=== PATIENT | male | born 1950 | race African-American/Black ===

== ENCOUNTER 2016-07-10 05:59 | Inpatient (IN) | payer MEDICARE, BC ==
[~2016-07-10] VITALS: Ht 198.1 cm; Wt 108.9 kg
[2016-07-10] VITALS (12 sets, daily range): BP systolic 107–162; BP diastolic 55–83
[2016-07-10] MEDS ORDERED: celeBREX 200mg Cap **SURGERY PATIENTS ONLY ORAL ONE (06:00)
[2016-07-10] MEDS ORDERED: oxyCONTIN 20mg tab ORAL ONE (06:00)
[2016-07-10] MEDS ORDERED: Clindamycin 600mg 50 ML IV ONE (06:00)
--- NOTE | 2016-07-10 06:53 | Pre-Procedure Note/Attestation ---
Pre-Procedure Note/Attestation Complete Prior to Procedure Planned Procedure: left Procedure Narrative: left TKA Indications for Procedure Pre-Operative Diagnosis: Left knee arthritis Attestation I attest that I discussed the nature of the procedure; its benefits; risks and complications; and alternatives (and the risks and benefits of such alternatives ), prior to the procedure, with the patient (or the patient's legal tax compliance representative). I attest that, if there was a reasonable possibility of needing a blood transfusion, the patient (or the patient's legal tax compliance representative) was given the [facility] standardized written summary, pursuant to the [place] Blood Safety Act ([place] Health and Safety Code # 1645, as amended). I attest that I re-evaluated the patient just prior to the surgery and that there has been no change in the patient's H&P, except as documented below:NONE MING PENN Jul 10, 2016 06:53
[2016-07-10] MEDS ORDERED: SPIRONOLACTONE25 MG ORAL (07:41)
[2016-07-10] MEDS ORDERED: EDARBI40 MG ORAL (07:42)
[2016-07-10] MEDS ORDERED: VERAPAMIL SR240 MG PO (07:42)
[2016-07-10] MEDS ORDERED: WARFARIN SODIUM5 MG ORAL (07:43)
[2016-07-10] MEDS ORDERED: CARDURA4 MG ORAL (07:44)
[2016-07-10] MEDS ORDERED: PACERONE200 MG ORAL (07:44)
[2016-07-10] MEDS ORDERED: Morphine Sulfate PF 10 ML ONE (08:19)
[2016-07-10] MEDS ORDERED: Ropivacaine 5mg/ml Vial 20ml INJ ONE (08:19)
[2016-07-10] MEDS ORDERED: Bupivacaine 0.5% Inj 30 ml vial INJ ONE (08:19)
[2016-07-10] MEDS ORDERED: Bacitracin 50000 Units Vial ONE (08:40)
[2016-07-10 08:44] LABS: INR 1.8 (0.9-1.1); PROTHROMBIN TIME 18.8 SEC (9.30-11.50)
[2016-07-10] MEDS ORDERED: LR 1000ml ONE (08:45)
[2016-07-10] MEDS ORDERED: NS Irrig 2000ml IRRIG ONE (08:45)
[2016-07-10] MEDS ORDERED: Dexamethasone 4mg/ml vial ONE (08:45)
[2016-07-10] MEDS ORDERED: Propofol 10mg/ml 20ml IV ONE (08:45)
[2016-07-10] MEDS ORDERED: Lidocaine 1% MPF 10mg/ml 5ml ONE (08:45)
[2016-07-10] MEDS ORDERED: Alfentanil 2ml Inj ONE (08:45)
[2016-07-10] MEDS ORDERED: Sterile Water For Irrig 2000ml IRRIG ONE (08:45)
[2016-07-10] MEDS ORDERED: Sterile Water Irrig 1000ml IRRIG ONE (08:45)
[2016-07-10] MEDS ORDERED: NS Irrig 1000ml ONE (08:45)
[2016-07-10] MEDS ORDERED: Midazolam 2mg/2ml Inj ONE (08:45)
--- NOTE | 2016-07-10 09:32 | Anethesia Preoperative Eval ---
Anesthesia Pre-op PMH/ROS General Date of Evaluation: Jul 10, 2016 Time of Evaluation: 08:41 Anesthesiologist: Carter ASA Score: ASA 3 Mallampati Score Class I : Soft palate, uvula, fauces, pillars visible Class II: Soft palate, uvula, fauces visible Class III: Soft palate, base of uvula visible Class IV: Only hard plate visible Mallampati Classification: Class III Surgeon: Danilo Anesthesia History: none Family History: no anesthesia problems Allergies: Coded Allergies: PENICILLINS (Unverified Allergy, Unknown, unknown, 07/10/16) "was told by mother that he is allergic to penicillin" Uncoded Allergies: grass (Allergy, Mild, unknown, 07/10/16) "was tested and was told" Medications: see eMAR Past Medical History Cardiovascular: Reports: HTN, arrhythmia - paroxysmal AFib Gastrointestinal/Genitourinary: Reports: other - BPH Neurologic/Psychiatric: Reports: CVA Hematology/Immune: Reports: DVT - Vena Cava Filter PSxH Narrative: Multiple Sx T Bilateral Knees, L Shoulder, Crainotomy, Vena Cava Filter Anesthesia Pre-op Phys. Exam Physician Exam Last Vital Signs Date Time Temp Pulse Resp B/P Pulse Ox O2 Delivery O2 Flow Rate FiO2 07/10/16 08:40 98.7 54 18 141/75 99 Room Air Constitutional: NAD Neurologic: CN 2-12 intact Cardiovascular: RRR Respiratory: CTA Gastrointestinal: S/NT/ND Airway Exam Mallampati Score: Class III MO: full ROM: limited Teeth: intact Anesthesia Pre-op A/P Labs Coagulation Test 07/10/16 07:50 Prothrombin Time 18.8 SEC (9.30-11.50) H Prothromb Time International Ratio 1.8 (0.9-1.1) H Activated Partial Thromboplast Time 31 SEC (23-33) Risk Assessment & Plan Assessment: ASA 3 Plan: Ga, Spinal L Adductor Block Status Change Before Surgery: No Pre-Antibiotics Dru Mg Clindamycin IV Given Within 1 Hr of Incision: Yes Time Given: 08:51 Baldo Machado MD Jul 10, 2016 09:32
[2016-07-10] MEDS ORDERED: LR 1000ml 1,000 ML IVLG SCH (09:42)
[2016-07-10] MEDS ORDERED: Bupivacaine w/Epi 0.5% 30ml Vial INJ ONE (09:44)
[2016-07-10] MEDS ORDERED: Hydromorphone 0.5mg/0.5ml inj IVP PRN (09:45)
[2016-07-10] MEDS ORDERED: DiphenhydrAMINE 50mg/ml Inj IVP PRN (09:45)
[2016-07-10] MEDS ORDERED: Norco 5mg/325mg tab ORAL PRN ×2 (09:45→14:00)
[2016-07-10] MEDS ORDERED: Ketorolac 30mg Inj IV PRN (09:45)
[2016-07-10] MEDS ORDERED: Metoclopramide 10mg/2ml Inj IVP PRN (09:45)
[2016-07-10] MEDS ORDERED: Atropine Inj 1mg/10ml Syr IV PRN (09:45)
[2016-07-10] MEDS ORDERED: Labetalol 5mg/ml 20ml vial IV PRN (09:45)
[2016-07-10] MEDS ORDERED: LORazepam Inj 2mg/ml 1ml IV PRN (09:45)
[2016-07-10] MEDS ORDERED: Norco 7.5mg/325mg tab ORAL PRN ×2 (09:45→14:00)
[2016-07-10] MEDS ORDERED: fentaNYL 100 mcg/2 mL IV PRN (09:45)
[2016-07-10] MEDS ORDERED: Midazolam 2mg/2ml Inj IVP PRN (09:45)
[2016-07-10] MEDS ORDERED: Tranexamic Acid 1,000 MG in NS 55 ML IV ONE (09:45)
[2016-07-10] MEDS ORDERED: Ketorolac 60mg Inj IV PRN (09:45)
[2016-07-10] MEDS ORDERED: Oxycodone/Acetaminophen 5-325 ORAL PRN (09:45)
[2016-07-10] MEDS ORDERED: Meperidine 25mg/ml Inj IV PRN (09:45)
--- NOTE | 2016-07-10 09:58 | Immediate Post-Op Evaluation ---
Immediate Post-Op Evalulation Immediate Post-Op Evalulation Procedure: L Knee Total Arthroplasty Date of Evaluation: Jul 10, 2016 Time of Evaluation: 12:14 IV Fluids: 1000 LR Blood Products: 0 Estimated Blood Loss: 50 Urinary Output: 250 Blood Pressure Systolic: 111 Blood Pressure Diastolic: 56 Pulse Rate: 64 Respiratory Rate: 16 O2 Sat by Pulse Oximetry: 100 Temperature (Fahrenheit): 98.7 Pain Score (1-10): 0 Nausea: No Vomiting: No Complications 0 Patient Status: awake, reacts, patent, extubated, none Hydration Status: adequate Dru Mg Clindamycin IV Given Within 1 Hr of Incision: Yes Time Given: 08:51 Baldo Machado MD Jul 10, 2016 09:58
--- NOTE | 2016-07-10 11:53 | Brief Operative Note ---
Immediate Post Operative Note Operative Note Chief Complaint: left knee pain Pre-op Diagnosis: left knee arthritis Procedure: left TKA Post-op Diagnosis: same as pre-op Findings: consistent w/pre-op dx studies Surgeon: md Danilo Bat Person: vishal Lobo Anesthesiologist: MD Zenon Anesthesia: general Specimen: yes Complications: none Condition: stable Estimated Blood Loss: minimal Drains: none Implant(s) used?: Yes - DIPTI Murphy Jul 10, 2016 11:53
[2016-07-10] MEDS ORDERED: HYDROmorphone 1mg/ml Carpuject SUBQ PRN (14:00)
[2016-07-10] MEDS ORDERED: Milk of Magnesia 30ml Ud ORAL PRN (14:00)
--- NOTE | 2016-07-10 14:21 | Diagnostic Imaging Report ---
Indication: POST-OP Technique: 2 views of the left knee Comparison: None Findings:Patient is status post total knee arthroplasty. Good anatomic alignment of the prosthesis. Retained air in the surgical wound is noted. Impression:Postoperative left knee. No unusual features
--- NOTE | 2016-07-10 16:26 | General Progress Note ---
Assessment/Plan Status Narrative hypertension historyof afib historyof pulmonary embolism chronci anticoagulatin repeated PE historyof IVC filter Assessment/Plan high risk orf recurent pe depsite previous ivc filter placemtn plan check a venosu duplex dvt prophyalxis when ok to start coumadin pt ot paincontrol hyeprtenison bp meds with hold parametes on amiodaroine georgette carreon wcloslye follow cbc Subjective Date patient seen: Jul 10, 2016 Time patient seen: 16:24 Constitutional: Reports: no symptoms Cardiovascular: Reports: no symptoms Respiratory: Reports: no symptoms Gastrointestinal/Abdominal: Reports: no symptoms Neurologic/Psychiatric: Reports: no symptoms Allergies: Coded Allergies: PENICILLINS (Unverified Allergy, Unknown, unknown, 07/10/16) "was told by mother that he is allergic to penicillin" Uncoded Allergies: grass (Allergy, Mild, unknown, 07/10/16) "was tested and was told" Objective Last 24 Hour Vital Signs Date Time Temp Pulse Resp B/P Pulse Ox O2 Delivery O2 Flow Rate FiO2 07/10/16 15:19 97.4 54 18 128/66 98 Room Air 07/10/16 13:45 97.3 51 18 114/56 97 Nasal Cannula 2.0 07/10/16 13:25 98.0 62 21 110/62 100 Nasal Cannula 3.0 07/10/16 13:10 60 13 107/58 100 Nasal Cannula 3.0 07/10/16 12:55 58 14 109/56 100 Nasal Cannula 3.0 07/10/16 12:40 64 19 110/56 100 Nasal Cannula 3.0 07/10/16 12:25 64 17 117/55 100 Nasal Cannula 3.0 07/10/16 12:13 62 15 111/57 100 Simple Mask 6.0 07/10/16 12:08 64 23 107/56 100 Simple Mask 6.0 07/10/16 12:03 98.7 64 16 111/56 100 07/10/16 12:03 64 16 100 07/10/16 08:40 98.7 54 18 141/75 99 Room Air Laboratory Tests 07/10/16 07:50: Prothrombin Time 18.8H, Prothromb Time International Ratio 1.8H, Activated Partial Thromboplast Time 31 Height (Feet): 6 Height (Inches): 6.00 Weight (Pounds): 240 General Appearance: WD/WN Neck: normal alignment Cardiovascular: normal rate, no JVD Respiratory/Chest: lungs clear Abdomen: soft ANITRA QUISPE Jul 10, 2016 16:26
[2016-07-10] MEDS: Clindamycin 600mg 50 ML IV SCH ×2 (17:27→22:03)
[2016-07-10] MEDS: Warfarin Sodium 5mg ORAL SCH (17:27)
[2016-07-10] MEDS: D5 1/2NS w/KCl 20mEq 1,000 ML IV SCH (17:27)
[2016-07-10] MEDS: Docusate 100mg cap ORAL SCH (17:33)
[2016-07-10] MEDS ORDERED: Verapamil SR 240mg tab ORAL SCH (21:00)
[2016-07-10] MEDS: Spironolactone 25mg tab ORAL SCH (22:03)
[2016-07-10] MEDS: Amiodarone 200mg tab ORAL SCH (22:03)
[2016-07-10] MEDS: oxyCONTIN 20mg tab ORAL SCH (22:04)
[2016-07-10] MEDS: EDARBI 40 MG ORAL SCH (22:04)
[2016-07-10] MEDS: Enoxaparin 30mg Inj SUBQ SCH (22:10)
[2016-07-10] MEDS: Doxazosin 4mg tab ORAL SCH (22:19)
[2016-07-10] MEDS: Verapamil SR 240mg tab ORAL SCH (22:23)
[2016-07-11] VITALS (9 sets, daily range): BP systolic 111–148; BP diastolic 54–96
[2016-07-11] MEDS: Clindamycin 600mg 50 ML IV SCH ×2 (03:00→09:17)
[2016-07-11] MEDS: D5 1/2NS w/KCl 20mEq 1,000 ML IV SCH ×2 (04:49→18:01)
[2016-07-11 07:30] LABS: BASOPHILS % (AUTO) 0.2 % (0.0-2.0); LYMPHOCYTES % (AUTO) 6.3 % (20.0-45.0); MEAN CORPUSCULAR HEMOGLOBIN 30.7 PG (27.0-31.0); MEAN CORPUSCULAR HGB CONC 33.1 G/DL (32.0-36.0); MEAN CORPUSCULAR VOLUME 93 FL (80-99); MEAN PLATELET VOLUME 7.7 FL (6.5-10.1); MONOCYTES % (AUTO) 9.4 % (1.0-10.0); NEUTROPHILS % (AUTO) 84.1 % (45.0-75.0); PLATELET COUNT 173 K/UL (150-450); RED BLOOD COUNT 3.59 M/UL (4.70-6.10); WHITE BLOOD COUNT 11.1 K/UL (4.8-10.8)
--- NOTE | 2016-07-11 08:05 | Orthopedic Progress Note ---
Orthopedic - Progress Note Subjective Symptoms: improved Objective Vital Signs Laboratory Tests Test 07/11/16 06:45 White Blood Count 11.1 K/UL (4.8-10.8) H Red Blood Count 3.59 M/UL (4.70-6.10) L Hemoglobin 11.0 G/DL (14.2-18.0) L Hematocrit 33.2 % (42.0-52.0) L Mean Corpuscular Volume 93 FL (80-99) Mean Corpuscular Hemoglobin 30.7 PG (27.0-31.0) Mean Corpuscular Hemoglobin Concent 33.1 G/DL (32.0-36.0) Red Cell Distribution Width 13.0 % (11.6-14.8) Platelet Count 173 K/UL (150-450) Mean Platelet Volume 7.7 FL (6.5-10.1) Neutrophils (%) (Auto) 84.1 % (45.0-75.0) H Lymphocytes (%) (Auto) 6.3 % (20.0-45.0) L Monocytes (%) (Auto) 9.4 % (1.0-10.0) Eosinophils (%) (Auto) 0.0 % (0.0-3.0) Basophils (%) (Auto) 0.2 % (0.0-2.0) Prothrombin Time Pending Prothromb Time International Ratio Pending Last 24 Hour Vital Signs Date Time Temp Pulse Resp B/P Pulse Ox O2 Delivery O2 Flow Rate FiO2 07/11/16 04:00 97.2 51 18 142/74 99 Room Air 07/11/16 00:00 96.4 52 18 148/78 96 Room Air 07/10/16 22:23 50 148/77 07/10/16 20:00 97.3 53 18 162/83 99 Room Air 07/10/16 15:19 97.4 54 18 128/66 98 Room Air 07/10/16 13:45 97.3 51 18 114/56 97 Nasal Cannula 2.0 07/10/16 13:25 98.0 62 21 110/62 100 Nasal Cannula 3.0 07/10/16 13:10 60 13 107/58 100 Nasal Cannula 3.0 07/10/16 12:55 58 14 109/56 100 Nasal Cannula 3.0 07/10/16 12:40 64 19 110/56 100 Nasal Cannula 3.0 07/10/16 12:25 64 17 117/55 100 Nasal Cannula 3.0 07/10/16 12:13 62 15 111/57 100 Simple Mask 6.0 07/10/16 12:08 64 23 107/56 100 Simple Mask 6.0 07/10/16 12:03 98.7 64 16 111/56 100 07/10/16 12:03 64 16 100 07/10/16 08:40 98.7 54 18 141/75 99 Room Air I&O Intake and Output 07/10/16 07/11/16 19:00 07:00 Intake Total 2025 ml 1035 ml Output Total 350 ml 575 ml Balance 1675 ml 460 ml Intake Oral 500 ml 360 ml IV Total 1525 ml 675 ml Output Urine Total 300 ml 575 ml Estimated Blood Loss 50 ml # Voids 2 Wound: clean, dry, intact Drains: none Neuro Status: other - intact sensation. weakness on dorsiflexion- possibly due to spinal/blocks- will monitor Vascular Status: normal Additional Comments xray reviewed Assessment Post-op Diagnosis POD 1 Procedure Performed left TKA Plan Plan: PT, discharge plan - home with services and DME on Saturday DIPTI SAL Jul 11, 2016 08:05
[2016-07-11 08:06] LABS: INR 1.7 (0.9-1.1); PROTHROMBIN TIME 17.5 SEC (9.30-11.50)
[2016-07-11] MEDS ORDERED: Amiodarone 200mg tab ORAL SCH (09:00)
[2016-07-11] MEDS ORDERED: Spironolactone 25mg tab ORAL SCH (09:00)
[2016-07-11] MEDS ORDERED: Doxazosin 4mg tab ORAL SCH (09:00)
[2016-07-11] MEDS: celeBREX 200mg Cap **SURGERY PATIENTS ONLY ORAL SCH (09:22)
[2016-07-11] MEDS: Docusate 100mg cap ORAL SCH ×3 (09:22→18:00)
[2016-07-11] MEDS: oxyCONTIN 20mg tab ORAL SCH ×2 (09:22→20:50)
[2016-07-11] MEDS: Enoxaparin 30mg Inj SUBQ SCH ×2 (09:27→20:55)
--- NOTE | 2016-07-11 12:04 | 48 Hour Post Anesthesia Eval ---
Post Anesthesia Evaluation Procedure: L Knee Total Arthroplasty Date of Evaluation: Jul 11, 2016 Time of Evaluation: 07:10 Blood Pressure Systolic: 142 0: 74 Pulse Rate: 51 Respiratory Rate: 18 Temperature (Fahrenheit): 97.2 O2 Sat by Pulse Oximetry: 99 Airway: patent Nausea: No Vomiting: No Pain Intensity: 1 Hydration Status: adequate Cardiopulmonary Status: at baseline Mental Status/LOC: patient returned to baseline Post-Anesthesia Complications: 0 Follow-up care needed: N/A - further care as per primary team CARLOS LANZA M.D. Jul 11, 2016 12:04
--- NOTE | 2016-07-11 15:58 | Operative Note - Dictated ---
DATE OF OPERATION: 07/10/2016 PREOPERATIVE DIAGNOSIS: Left knee end-stage arthritis with flexion deformity. 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 PROCEDURE: Left total knee arthroplasty using a [employer] system, size 12 femur, size H tibial plate with a 42 mm patellar component and 10 mm thick poly insert. SURGEON: Conner Carrasco M.D. BIOLOGY INTERN: Soumya Lobo PA-C. ANESTHESIOLOGIST: Baldo Machado M.D. ANESTHESIA: Spinal anesthesia combined with femoral nerve block for postoperative pain management. EBL: Less than 150 mL. COMPLICATIONS: None. BRIEF HISTORY: The patient is a pleasant 65-year-old gentleman, who has had ongoing left knee pain. He failed all nonoperative treatment. He has severe arthritis. After full discussion of risks and benefits of surgery and complications associated with it including infection, bleeding, neurovascular complication, possibility of DVT and PE, especially in his case where he has a history of DVT and PE in the past, possibility of infection requiring resection arthroplasty, possible loss of motion, stiffness, pain despite surgery and after surgery, limping and other complications, he opted for surgical treatment as described above. OPERATIVE PROCEDURE: The patient was brought to the operating room table and was placed supine. All pressure points were well padded. Spinal anesthesia was induced and a femoral block was performed. Left leg was prepped and draped in usual sterile fashion. Limb was exsanguinated. The tourniquet was inflated to 275 mmHg. A standard anterior approach to the knee was undertaken and medial parapatellar arthrotomy was performed. There were extensive osteophytes, which were resected. The medial release was performed. The notch was completely overgrown with bone. Therefore, this was resected using a rongeur. ACL and PCL were resected and intramedullary access into the femur was obtained. Intramedullary guide was placed in and a distal femoral cut was performed at 5 degrees of valgus. An optional extra 2 mm cut was taken in order to correct for the extension gap. Once this was completed, the sizing was performed. Size 12, which was the largest size for the femur appeared to be the right size. Therefore, the femur was placed in about 3 degrees of external rotation using transepicondylar access and the anterior, posterior, and chamfer cuts were performed. The femoral component was then applied and it appeared to be fitting perfectly. The peg holes were drilled. The femur was lateralized before drilling the peg holes. This provided excellent coverage of the femur. At this point, care was given to the tibial side. The trial femur was removed. The posterior and mediolateral retractors were placed in. The menisci were removed. The anatomical alignment was re-created and 2 mm was taken off the most involved side, which was the medial side. The slope was re-created and the tibial cut was performed without any complication. Sizing was performed and size H was the largest size that could be used. This appeared to be covering the tibia relatively well although was slightly small. However, because this was the largest size we had, there was no option to go any larger on the size. At this point, the tibia was placed in about 3 degrees external rotation on the best bone and the pins were applied. Prior to applying tibia, flexion-extension gap was checked, it appeared to be perfect. At this point, the central drilling was performed and the stem was punched without any complication. At this point, the femoral component, tibial component, and a 10 mm poly was placed and the knee was placed through range of motion. There was excellent extension, full flexion, and excellent stability at 0 degrees, 30 degrees, 45 degrees, and 90 degrees of flexion. At this point, care was given to the patella. At this time, the knee was placed in full extension. The patella was everted. The towel clamps were used and the patella measured to be 29 mm. At this point, a freehand patellar cut was performed and 12 mm patella was removed. Approximately 17 mm patella was remaining. Sizing was performed and size 42 appeared to be the correct size for the patella. At this point, the patellar pegs were then drilled without any complication. At this point, the patellar trial was applied and there was excellent fit. At this point, trialing was performed with patellar component, femoral component, and tibial component with a 10 mm insert and there was excellent patellofemoral tracking and excellent range of motion and stability as described previously. At this point, all trial components were removed and the knee was thoroughly irrigated using copious amount of fluid. The posterior capsule was injected with 0.5% Marcaine with epinephrine. The cement was mixed. The femoral component, tibial component, and patellar components were cemented. All excess cement was removed. At this point, once the cement hardened, trialing was performed and 10 mm poly appeared to be the right size again. Therefore at this point, a 10 mm actual poly was then locked in without any complications. This provided excellent range of motion and excellent stability and excellent patellofemoral tracking as described previously. Wounds were thoroughly irrigated using copious amount of fluid. The tourniquet was deflated and all bleeders were stopped. The extensor mechanism was closed using #1 Vicryl suture, subcutaneous tissue was closed in 2-0 Vicryl suture, skin was closed in 3-0 Vicryl suture, and Dermabond was applied. Sterile dressing was applied. The patient was taken to recovery room in stable condition. Conner Carrasco M.D. DR: JOSEF JOB#: [id number] CC: HELENA
--- NOTE | 2016-07-11 16:49 | General Progress Note ---
Assessment/Plan Status Narrative THIS IS A COMPLICATED PATIENT WITH HISTORY OF DVT HAS AHD IVC FILTER PLACVED APPARENTLY HAS HAD A CLAMPED PLACED WELL HE IS TALL AND APPARENTLY THE IVC FILTER WAS NOT BIG ENOUGH HE HAS HAD PULMONARY EMBOLISM POST IVC FILTER PLACEMENT OA KNEE AFIB HYPERTENSION PERIOPERATIVE BLOOD LOSS Assessment/Plan ON LOVENOX 30 SUB Q BID WILL GET VASCULAR TO SEE HIM GET KUB TO ASSESS THE IVC FILTER WILL GET VASCULAR TO COMMENT CAN NOT ANTICOAGULATE NOW HE IS HIGH RISK BLEEDINGI N THE JOINT POST OP PT OT FOLLO WBP WILL MONITOR HAS IVC FILTER SHOULD BE ABLE TO DO PHYSICAL THERAPY Subjective Date patient seen: Jul 11, 2016 Time patient seen: 16:45 Constitutional: Reports: no symptoms HEENT: Reports: no symptoms Cardiovascular: Reports: no symptoms Respiratory: Reports: no symptoms Gastrointestinal/Abdominal: Reports: no symptoms Genitourinary: Reports: no symptoms Allergies: Coded Allergies: PENICILLINS (Unverified Allergy, Unknown, unknown, 07/10/16) "was told by mother that he is allergic to penicillin" Uncoded Allergies: grass (Allergy, Mild, unknown, 07/10/16) "was tested and was told" Objective Last 24 Hour Vital Signs Date Time Temp Pulse Resp B/P Pulse Ox O2 Delivery O2 Flow Rate FiO2 07/11/16 12:04 51 18 99 07/11/16 12:00 97.5 54 20 115/67 98 Room Air 07/11/16 09:25 62 18 119/67 99 2.0 07/11/16 09:20 62 18 116/70 99 2.0 07/11/16 09:15 57 18 111/54 99 2.0 07/11/16 08:41 97.5 57 20 134/63 99 Room Air 07/11/16 04:00 97.2 51 18 142/74 99 Room Air 07/11/16 00:00 96.4 52 18 148/78 96 Room Air 07/10/16 22:23 50 148/77 07/10/16 20:00 97.3 53 18 162/83 99 Room Air Intake and Output 07/10/16 07/11/16 19:00 07:00 Intake Total 2025 ml 1035 ml Output Total 350 ml 575 ml Balance 1675 ml 460 ml Intake Oral 500 ml 360 ml IV Total 1525 ml 675 ml Output Urine Total 300 ml 575 ml Estimated Blood Loss 50 ml # Voids 2 Laboratory Tests 07/11/16 06:45: White Blood Count 11.1H, Red Blood Count 3.59L, Hemoglobin 11.0L, Hematocrit 33.2L, Mean Corpuscular Volume 93, Mean Corpuscular Hemoglobin 30.7, Mean Corpuscular Hemoglobin Concent 33.1, Red Cell Distribution Width 13.0, Platelet Count 173, Mean Platelet Volume 7.7, Neutrophils (%) (Auto) 84.1H, Lymphocytes ( %) (Auto) 6.3L, Monocytes (%) (Auto) 9.4, Eosinophils (%) (Auto) 0.0, Basophils (%) (Auto) 0.2, Prothrombin Time 17.5H, Prothromb Time International Ratio 1.7H Height (Feet): 6 Height (Inches): 6.00 Weight (Pounds): 240 General Appearance: WD/WN EENT: PERRL/EOMI Neck: supple Cardiovascular: normal rate, regular rhythm, no JVD Respiratory/Chest: lungs clear Abdomen: soft Extremities: other - right knee is weel cover ed with the dressing no drainge. ANITRA QUISPE Jul 11, 2016 16:49
[2016-07-11] MEDS: Warfarin Sodium 5mg ORAL SCH (17:11)
[2016-07-11 18:58] LABS: ALBUMIN/GLOBULIN RATIO 1.9 (1.0-2.7); CALCIUM 8.3 mg/dL (8.6-10.2); CREATININE 1.5 mg/dL (0.7-1.2); GLOMERULAR FILTRATION RATE 56.6 mL/min (>60); POTASSIUM 4.8 mEQ/L (3.4-4.9); TOTAL PROTEIN 5.3 g/dL (6.6-8.7)
[2016-07-11] MEDS: Verapamil SR 240mg tab ORAL SCH (20:48)
[2016-07-11] MEDS: Doxazosin 4mg tab ORAL SCH (20:49)
[2016-07-11] MEDS: Amiodarone 200mg tab ORAL SCH (20:49)
[2016-07-11] MEDS: EDARBI 40 MG ORAL SCH (20:49)
[2016-07-11] MEDS: Spironolactone 25mg tab ORAL SCH (20:49)
--- NOTE | 2016-07-11 21:53 | General Progress Note ---
Progress Note Progress Note Dictated consult to follow S/p left knee ortho procedure Hx of prior DVTs PE CVA and arrhythmia Left leg DVTs noted on duplex today No complaints No sob No chest pain No leg pain Hx of IVC banding and IVC filter ([place]) by IR 2013 at [facility] 2+ femorals with palpable pedal pulses Feet warm well perfused Mild left leg venous stasis changes with no ulcers No sig leg edema KUB: + IVC filter good position Rec CT angio chest abd pelvis Anticoagulate for life- therapeutic level Hematology eval r/o clotting disorder Ambulate Bilateral thigh high stockings to reduce leg venous edema Ok for d/c planning per vascular point d/w pt at length d/w RN at bedside MARILYN AUSTIN Jul 11, 2016 21:53
[2016-07-12] VITALS: BP 104/53
[2016-07-12 04:00] VITALS: BP 133/60
[2016-07-12 07:00] LABS: INR 2.3 (0.9-1.1); PROTHROMBIN TIME 24.3 SEC (9.30-11.50)
--- NOTE | 2016-07-12 07:12 | Orthopedic Progress Note ---
Orthopedic - Progress Note Subjective Symptoms: c/o post-op knee pain Additional Comments doing ok, no shortness of breath, no calf pain. Patient has a DVT but not symptomatic, most likely present preop Objective Vital Signs Last 24 Hour Vital Signs Date Time Temp Pulse Resp B/P Pulse Ox O2 Delivery O2 Flow Rate FiO2 07/12/16 04:00 98.1 56 21 133/60 96 Room Air 07/12/16 00:00 97.7 52 19 104/53 96 Room Air 07/11/16 20:48 58 133/96 07/11/16 20:00 98.6 58 18 133/96 100 Room Air 07/11/16 16:00 97.9 55 17 131/65 98 Room Air 07/11/16 12:04 51 18 99 07/11/16 12:00 97.5 54 20 115/67 98 Room Air 07/11/16 09:25 62 18 119/67 99 2.0 07/11/16 09:20 62 18 116/70 99 2.0 07/11/16 09:15 57 18 111/54 99 2.0 07/11/16 08:41 97.5 57 20 134/63 99 Room Air I&O Intake and Output 07/11/16 07/12/16 19:00 07:00 Intake Total 1665 ml 800 ml Output Total 1500 ml Balance 165 ml 800 ml Intake Oral 840 ml 500 ml IV Total 825 ml 300 ml Output Urine Total 1500 ml Wound: clean, dry Drains: none Neuro Status: normal Vascular Status: normal Assessment Post-op Diagnosis Left TKA Plan Plan: PT, pain management, discharge plan, discharge to home Additional Comments Dressing changes Continue PT Anticoagulation in progress with Coumadin 5mg and on Lovenox Continue monitoring progress MING PENN Jul 12, 2016 07:12
[2016-07-12 07:17] LABS: BASOPHILS % (AUTO) 0.3 % (0.0-2.0); EOSINOPHILS % (AUTO) 0.6 % (0.0-3.0); LYMPHOCYTES % (AUTO) 12.9 % (20.0-45.0); MEAN CORPUSCULAR HEMOGLOBIN 30.5 PG (27.0-31.0); MEAN CORPUSCULAR HGB CONC 33.4 G/DL (32.0-36.0); MEAN CORPUSCULAR VOLUME 91 FL (80-99); MEAN PLATELET VOLUME 8.8 FL (6.5-10.1); MONOCYTES % (AUTO) 15.4 % (1.0-10.0); NEUTROPHILS % (AUTO) 70.8 % (45.0-75.0); PLATELET COUNT 154 K/UL (150-450); RED BLOOD COUNT 2.95 M/UL (4.70-6.10); RED CELL DISTRIBUTION WIDTH 13.2 % (11.6-14.8)
[2016-07-12 08:00] VITALS: BP 143/73
[2016-07-12] MEDS: Docusate 100mg cap ORAL SCH ×3 (08:51→18:00)
[2016-07-12] MEDS: celeBREX 200mg Cap **SURGERY PATIENTS ONLY ORAL SCH (08:52)
[2016-07-12] MEDS: oxyCONTIN 20mg tab ORAL SCH ×2 (08:52→21:19)
[2016-07-12] MEDS: D5 1/2NS w/KCl 20mEq 1,000 ML IV SCH ×2 (08:53→21:17)
[2016-07-12] MEDS: Enoxaparin 30mg Inj SUBQ SCH ×2 (08:54→21:21)
--- NOTE | 2016-07-12 10:06 | Diagnostic Imaging Report ---
Clinical Indication:Chest pain, shortness of breath, abnormal labs Technique: IV administration nonionic contrast. Multiphasic spiral acquisition obtained through the chest, abdomen and pelvis. Multiplanar and 3-D reconstructions were generated. Total dose length product 2345 mGycm. CTDIvol(s) 12, 138, 32, 22 mGy Comparison: None Findings: Chest: Pulmonary arterial opacification is clearly adequate. No intraluminal filling defects or other findings to suggest acute pulmonary embolus demonstrated. No evidence of thoracic aortic aneurysm or dissection. The main pulmonary artery is dilated, measures 4 cm in diameter and is larger than the ascending thoracic aorta, suggestive of pulmonary arterial hypertension. Normal heart size. No evidence of right ventricular dilatation. The lungs posterior dependent atelectasis. There are scattered areas of mild interstitial septal thickening and scarring. No infiltrates effusions, congestion, or masses. There is a 2 mm nodule in the right middle lobe image 64 of series 9. No pericardial effusion. No mediastinal or hilar mass or adenopathy. The esophagus is unremarkable. The included thyroid is unremarkable. No axillary or chest wall mass or adenopathy. There is a superior endplate compression fracture deformity of the 11 vertebral body. Abdomen pelvis: There is a lap band in place. Position and configuration are as expected. There is an inferior vena cava filter in place. The inferior vena cava appears patent, but appears to be well-positioned, and no significant thrombus within the filter is demonstrated. Surgical clips are seen adjacent to the inferior vena cava, and there is an unusual U-shaped structure oriented transversely within the inferior vena cava caudad to the filter. There is equivocal colonic diverticulosis. No evidence of diverticulitis. The appendix is normal. No small bowel distention. No free or loculated intraperitoneal air or fluid is evident. The stomach is mildly distended with food. The duodenum is unremarkable. There is a large mass within the right adrenal. This demonstrates nonspecific, mostly low, soft tissue attenuation, measures 3.8 x 4 x 3.9 cm. The left adrenal is unremarkable. The liver, gallbladder, bile ducts, pancreas, spleen are unremarkable. The kidneys demonstrate bilateral cysts, as well as bilateral subcentimeter low-attenuation lesions which are too small to characterize most likely represent benign simple cortical cysts. In the periphery of the left lower pole, there is what appears to be a collapsed cyst, with some perinephric fluid adjacent to it. No pelvic mass or adenopathy. No retroperitoneal or mesenteric mass or adenopathy. There are degenerative changes of the lumbosacral spine and minimal scoliotic deformity. There are fairly extensive degenerative changes of the right hip. Impression: 3.8 x 4 x 3.9 cm right adrenal mass. Appearance nonspecific, but size in heterogeneous attenuation raise concern for malignancy. Tissue sampling should be considered Negative for evidence of acute pulmonary embolus or thoracic aortic aneurysm or dissection Dilated main pulmonary artery, suggestive of pulmonary arterial hypertension. Consider further evaluation with adrenal protocol MRI or CT, versus tissue sampling. 2 mm nodule within the right middle lobe. Recommend short interval six-month followup if there are significant risk factors for lung carcinoma, no further followup necessary there are no significant risk factors Bilateral renal cysts. Bilateral subcentimeter low-attenuation renal lesions small to characterize, most likely benign simple cortical cysts. No further followup necessary T11 superior endplate compression fracture deformity, age indeterminate. Consider MRI for further evaluation if this is considered clinically relevant Evidence of prior lap band surgery Inferior vena cava filter in good position. No evidence of caval thrombosi -- s. Unusual foreign body within the inferior vena cava. Uncertain as to whether this is resultant prior surgery or represents an embolized foreign body. Correlate with clinical history and surgical history. Other findings as noted, including degenerative spondylosis, degenerative changes of the right hip This agrees with the preliminary interpretation provided overnight by Dr. Perez The CT scanner at [facility] is accredited by the [employer] and the scans are performed using protocols designed to limit radiation exposure to as low as reasonably achievable to attain images of sufficient resolution adequate for diagnostic evaluation.
--- NOTE | 2016-07-12 11:00 | Diagnostic Imaging Report ---
Indication: PAIN, assess for presence of an inferior vena cava filter Technique: Supine view of the abdomen Comparison: none Findings: Bowel gas pattern is unremarkable. There is an inferior vena cava filter in the expected position. Surgical clips are seen caudad to the inferior vena cava filter. A lap band is in place. Impression: Positive for presence of an inferior vena cava filter No acute process
[2016-07-12 11:17] VITALS: BP 103/53
[2016-07-12 16:01] VITALS: BP 135/65
--- NOTE | 2016-07-12 19:07 | General Progress Note ---
Assessment/Plan Status Narrative s/p ct angio no pr has adrenl amass no ivc clot s/p tkr perioperative bloo dloss Assessment/Plan ionr is 2.3 hold coumadin will dc on lovenox and resume coumadin on lower dosage need to find out his medicaiotn regimen prior to admit also need to r/o malignancy on him as has adrenal mass. Subjective Date patient seen: Jul 12, 2016 Time patient seen: 19:05 Constitutional: Reports: no symptoms HEENT: Reports: no symptoms Cardiovascular: Reports: no symptoms Respiratory: Reports: no symptoms Allergies: Coded Allergies: PENICILLINS (Unverified Allergy, Unknown, unknown, 07/10/16) "was told by mother that he is allergic to penicillin" Uncoded Allergies: grass (Allergy, Mild, unknown, 07/10/16) "was tested and was told" Objective Last 24 Hour Vital Signs Date Time Temp Pulse Resp B/P Pulse Ox O2 Delivery O2 Flow Rate FiO2 07/12/16 16:01 98.2 59 18 135/65 97 Room Air 07/12/16 11:17 98.2 57 18 103/53 98 Room Air 07/12/16 08:00 97.7 63 20 143/73 98 Room Air 07/12/16 04:00 98.1 56 21 133/60 96 Room Air 07/12/16 00:00 97.7 52 19 104/53 96 Room Air 07/11/16 20:48 58 133/96 07/11/16 20:00 98.6 58 18 133/96 100 Room Air Intake and Output 07/11/16 07/12/16 19:00 07:00 Intake Total 1665 ml 875 ml Output Total 1500 ml Balance 165 ml 875 ml Intake Oral 840 ml 500 ml IV Total 825 ml 375 ml Output Urine Total 1500 ml Laboratory Tests 07/12/16 05:50: White Blood Count 8.0, Red Blood Count 2.95L, Hemoglobin 9.0L, Hematocrit 27.0L , Mean Corpuscular Volume 91, Mean Corpuscular Hemoglobin 30.5, Mean Corpuscular Hemoglobin Concent 33.4, Red Cell Distribution Width 13.2, Platelet Count 154, Mean Platelet Volume 8.8, Neutrophils (%) (Auto) 70.8, Lymphocytes (% ) (Auto) 12.9L, Monocytes (%) (Auto) 15.4H, Eosinophils (%) (Auto) 0.6, Basophils (%) (Auto) 0.3, Prothrombin Time 24.3H, Prothromb Time International Ratio 2.3H Height (Feet): 6 Height (Inches): 6.00 Weight (Pounds): 240 General Appearance: WD/WN Neck: non-tender Cardiovascular: normal rate, no JVD Respiratory/Chest: lungs clear Abdomen: soft ANITRA QUISPE Jul 12, 2016 19:07
[2016-07-12 20:35] VITALS: BP 132/57
[2016-07-12] MEDS: Verapamil SR 240mg tab ORAL SCH (21:00)
[2016-07-12] MEDS: Spironolactone 25mg tab ORAL SCH (21:18)
[2016-07-12] MEDS: Amiodarone 200mg tab ORAL SCH (21:19)
[2016-07-12] MEDS: Doxazosin 4mg tab ORAL SCH (21:19)
[2016-07-12] MEDS: EDARBI 40 MG ORAL SCH (21:22)
[2016-07-13] VITALS: BP 119/59
[2016-07-13 04:00] VITALS: BP 125/61
[2016-07-13 07:09] LABS: MEAN CORPUSCULAR HEMOGLOBIN 30.4 PG (27.0-31.0); MEAN CORPUSCULAR HGB CONC 33.2 G/DL (32.0-36.0); MEAN CORPUSCULAR VOLUME 92 FL (80-99); MEAN PLATELET VOLUME 7.1 FL (6.5-10.1); PLATELET COUNT 138 K/UL (150-450); RED CELL DISTRIBUTION WIDTH 12.7 % (11.6-14.8); WHITE BLOOD COUNT 5.7 K/UL (4.8-10.8)
[2016-07-13 07:11] LABS: INR 1.9 (0.9-1.1); PROTHROMBIN TIME 20.1 SEC (9.30-11.50)
[2016-07-13] MEDS ORDERED: DiphenhydrAMINE 50mg/ml Inj IVP PRN (08:00)
--- NOTE | 2016-07-13 08:01 | Orthopedic Progress Note ---
Orthopedic - Progress Note Subjective Symptoms: improved - walked well with PT yesterday Additional Comments taken off coumadin- now INR 1.9 hgb 7.9 Objective Vital Signs Laboratory Tests Test 07/13/16 06:25 White Blood Count 5.7 K/UL (4.8-10.8) Red Blood Count 2.60 M/UL (4.70-6.10) L Hemoglobin 7.9 G/DL (14.2-18.0) L Hematocrit 23.8 % (42.0-52.0) L Mean Corpuscular Volume 92 FL (80-99) Mean Corpuscular Hemoglobin 30.4 PG (27.0-31.0) Mean Corpuscular Hemoglobin Concent 33.2 G/DL (32.0-36.0) Red Cell Distribution Width 12.7 % (11.6-14.8) Platelet Count 138 K/UL (150-450) L Mean Platelet Volume 7.1 FL (6.5-10.1) Neutrophils (%) (Auto) % (45.0-75.0) Lymphocytes (%) (Auto) % (20.0-45.0) Monocytes (%) (Auto) % (1.0-10.0) Eosinophils (%) (Auto) % (0.0-3.0) Basophils (%) (Auto) % (0.0-2.0) Neutrophils % (Manual) Pending Lymphocytes % (Manual) Pending Platelet Estimate Pending Platelet Morphology Pending Prothrombin Time 20.1 SEC (9.30-11.50) H Prothromb Time International Ratio 1.9 (0.9-1.1) H Last 24 Hour Vital Signs Date Time Temp Pulse Resp B/P Pulse Ox O2 Delivery O2 Flow Rate FiO2 07/13/16 04:00 98.6 56 18 125/61 99 Room Air 07/13/16 00:00 98.1 66 18 119/59 98 Room Air 07/12/16 21:00 57 132/57 07/12/16 20:35 98.6 57 19 132/57 95 Room Air 07/12/16 16:01 98.2 59 18 135/65 97 Room Air 07/12/16 11:17 98.2 57 18 103/53 98 Room Air 07/12/16 08:00 97.7 63 20 143/73 98 Room Air I&O Intake and Output 07/12/16 07/13/16 19:00 07:00 Intake Total 1200 ml 860 ml Output Total 600 ml 2000 ml Balance 600 ml -1140 ml Intake Oral 600 ml 860 ml IV Total 600 ml Output Urine Total 600 ml 2000 ml Wound: clean, dry, intact Drains: none Neuro Status: normal Vascular Status: normal Assessment Post-op Diagnosis POD 3 Procedure Performed left TKA Plan Plan: PT, discharge to home - if ok with Dr. Mercado, ok to d/c home with services/DME after blood tx. Defer anticoag choice on d/c to Dr. Mercado, other - will order 2units PRBCs for low hgb. DIPTI SAL Jul 13, 2016 08:01
[2016-07-13 08:28] VITALS: BP 123/58
[2016-07-13 08:29] LABS: BAND NEUTROPHILS % (MANUAL) 2 % (0-8); BASOPHILS % (MANUAL) 0 % (0-2); EOSINOPHILS % (MANUAL) 2 % (0-3); LYMPHOCYTES % (MANUAL) 14 % (20-45); NEUTROPHILS % (MANUAL) 76 % (45-75); PLATELET ESTIMATE ADEQUATE; TOTAL CELLS COUNTED 100
[2016-07-13 08:30] LABS: PLATELET MORPHOLOGY NORMAL
[2016-07-13] MEDS: oxyCONTIN 20mg tab ORAL SCH ×2 (08:40→21:18)
[2016-07-13] MEDS: celeBREX 200mg Cap **SURGERY PATIENTS ONLY ORAL SCH (08:41)
[2016-07-13] MEDS: Enoxaparin 30mg Inj SUBQ SCH ×2 (09:00→21:00)
[2016-07-13] MEDS: Docusate 100mg cap ORAL SCH ×2 (10:20→13:11)
[2016-07-13] MEDS: D5 1/2NS w/KCl 20mEq 1,000 ML IV SCH ×2 (10:23→23:30)
[2016-07-13 11:57] VITALS: BP 133/60
--- NOTE | 2016-07-13 15:49 | Discharge Summary 2 SIG ---
DATE OF ADMISSION: 07/10/2016 DATE OF DISCHARGE: 07/13/2016 HISTORY: The patient is a pleasant 65-year-old gentleman who was admitted after a left total knee arthroplasty. The patient has been followed along by Dr. Zachary Mercado from Internal Medicine. The patient does have a history of DVT and has been on long-term Coumadin with IVC filter. Coumadin bridge with Lovenox was started during his inpatient stay and INR was monitored. He was followed along by Dr. Mercado and was discharged on appropriate anticoagulation. Ultrasound of the lower leg was done while he was here showing old DVT in the left leg. No acute sign of DVT was noted. Clinically, he remained without calf pain, tenderness, or swelling. He remained without any chest pain or shortness of breath. Chest CT was done and normal. From Orthopedic standpoint, he was doing very well with his rehab and ambulating well with physical therapy. On date of discharge, the patient did received two units of blood for a low hemoglobin of 7.9. His wound was monitored and there was no significant drainage. Dressing was changed and on 07/13/2016 after physical therapy and blood transfusion, the patient was discharged home with all services and equipment and medications. DISCHARGE INSTRUCTIONS: The patient can be weightbearing as tolerated. Dressing can be changed as needed. He is to continue anticoagulation as prescribed and follow up with his primary care physician, . for ongoing management as well as follow up with us in 7 to 10 days in the office. All patient's questions were answered. Conner Carrasco M.D. I have been assigned to dictate discharge summary on this account and I was not involved in the patient's management. Silvino Mcmullen DR: Coreen JOB#: [id number] CC:
[2016-07-13 16:00] VITALS: BP 126/80
[2016-07-13] MEDS: Docusate 100mg tablet ORAL SCH (18:02)
--- NOTE | 2016-07-13 19:24 | General Progress Note ---
Assessment/Plan Status Narrative anemia drop[ in hgb now 7.9 will follow cbc abd velma sandoval withrtransfusion and follow Assessment/Plan on low dose lovenox and will follow no coumaidin ADRENAL MASS TO HAVE VELMA CELMENTS AND HAVE VELMA VEGAS OUTPATIENT A WILL NEED AMLIGNANCY AND ENDOCRINE FOLLOW UP FOLLOW CBC INR IN AM Subjective Date patient seen: Jul 13, 2016 Time patient seen: 19:21 Constitutional: Reports: no symptoms Cardiovascular: Reports: no symptoms Respiratory: Reports: no symptoms Gastrointestinal/Abdominal: Reports: no symptoms Genitourinary: Reports: no symptoms Allergies: Coded Allergies: PENICILLINS (Unverified Allergy, Unknown, unknown, 07/10/16) "was told by mother that he is allergic to penicillin" Uncoded Allergies: grass (Allergy, Mild, unknown, 07/10/16) "was tested and was told" Objective Last 24 Hour Vital Signs Date Time Temp Pulse Resp B/P Pulse Ox O2 Delivery O2 Flow Rate FiO2 07/13/16 16:00 98.2 55 16 126/80 100 Room Air 07/13/16 11:57 98.2 58 18 133/60 98 Room Air 07/13/16 08:28 99.0 58 18 123/58 98 Room Air 07/13/16 04:00 98.6 56 18 125/61 99 Room Air 07/13/16 00:00 98.1 66 18 119/59 98 Room Air 07/12/16 21:00 57 132/57 07/12/16 20:35 98.6 57 19 132/57 95 Room Air Intake and Output 07/12/16 07/13/16 19:00 07:00 Intake Total 1200 ml 935 ml Output Total 600 ml 2000 ml Balance 600 ml -1065 ml Intake Oral 600 ml 860 ml IV Total 600 ml 75 ml Output Urine Total 600 ml 2000 ml Laboratory Tests 07/13/16 06:25: White Blood Count 5.7, Red Blood Count 2.60L, Hemoglobin 7.9L, Hematocrit 23.8L , Mean Corpuscular Volume 92, Mean Corpuscular Hemoglobin 30.4, Mean Corpuscular Hemoglobin Concent 33.2, Red Cell Distribution Width 12.7, Platelet Count 138L, Mean Platelet Volume 7.1, Neutrophils (%) (Auto) , Lymphocytes (%) ( Auto) , Monocytes (%) (Auto) , Eosinophils (%) (Auto) , Basophils (%) (Auto) , Differential Total Cells Counted 100, Neutrophils % (Manual) 76H, Lymphocytes % (Manual) 14L, Monocytes % (Manual) 6, Eosinophils % (Manual) 2, Basophils % ( Manual) 0, Band Neutrophils 2, Platelet Estimate Adequate, Platelet Morphology Normal, Red Blood Cell Morphology Normal, Prothrombin Time 20.1H, Prothromb Time International Ratio 1.9H Height (Feet): 6 Height (Inches): 6.00 Weight (Pounds): 240 General Appearance: WD/WN EENT: PERRL/EOMI Neck: non-tender Respiratory/Chest: lungs clear Abdomen: soft ANITRA QUISPE Jul 13, 2016 19:24
[2016-07-13 20:00] VITALS: BP 140/70
[2016-07-13] MEDS: Verapamil SR 240mg tab ORAL SCH (21:00)
[2016-07-13] MEDS: EDARBI 40 MG ORAL SCH (21:00)
[2016-07-13] MEDS: Spironolactone 25mg tab ORAL SCH (21:17)
[2016-07-13] MEDS: Doxazosin 4mg tab ORAL SCH (21:17)
[2016-07-13] MEDS: Amiodarone 200mg tab ORAL SCH (21:17)
[2016-07-14] VITALS: BP 125/58
[2016-07-14 04:00] VITALS: BP 138/66
[2016-07-14 07:23] LABS: BASOPHILS % (AUTO) 0.9 % (0.0-2.0); EOSINOPHILS % (AUTO) 3.1 % (0.0-3.0); MEAN CORPUSCULAR HEMOGLOBIN 29.9 PG (27.0-31.0); MEAN CORPUSCULAR HGB CONC 32.4 G/DL (32.0-36.0); MEAN CORPUSCULAR VOLUME 92 FL (80-99); MEAN PLATELET VOLUME 7.4 FL (6.5-10.1); MONOCYTES % (AUTO) 15.5 % (1.0-10.0); NEUTROPHILS % (AUTO) 61.5 % (45.0-75.0); PLATELET COUNT 165 K/UL (150-450); RED BLOOD COUNT 3.14 M/UL (4.70-6.10); RED CELL DISTRIBUTION WIDTH 13.1 % (11.6-14.8); WHITE BLOOD COUNT 6.5 K/UL (4.8-10.8)
[2016-07-14 08:00] VITALS: BP 139/65
[2016-07-14] MEDS: celeBREX 200mg Cap **SURGERY PATIENTS ONLY ORAL SCH (09:00)
[2016-07-14] MEDS: Docusate 100mg tablet ORAL SCH (09:21)
[2016-07-14] MEDS: oxyCONTIN 20mg tab ORAL SCH (09:22)
[2016-07-14] MEDS: Enoxaparin 30mg Inj SUBQ SCH (09:26)
[2016-07-14] MEDS ORDERED: LOVENOX10 MG SUBQ (10:08)
[2016-07-14] MEDS ORDERED: NORCO 5-325 TA1 EACH ORAL (10:25)
[2016-07-14 12:31] LABS: INR 1.2 (0.9-1.1); PROTHROMBIN TIME 12.5 SEC (9.30-11.50)
[2016-07-14] MEDS ORDERED: D5 1/2NS 1000ml IV ONE (13:50)
[2016-07-14] MEDS ORDERED: Tubing IV Secondary IV ONE (13:50)
--- NOTE | 2016-07-16 08:58 | Discharge Summary ---
DATE OF ADMISSION: 07/10/2016 DATE OF DISCHARGE: 07/14/2016 HOSPITAL COURSE: 1. total knee replacement. The patient underwent total knee replacement by Dr. Carrasco. Postoperatively, the patient has been able to do physical therapy. The patient was noted to have deep venous thrombosis. 2. the patient has a complicated history of DVT has been on anticoagulation. and has had DVT many years ago. The patient had an IVC filter placement with a clip. 3. Nonetheless, DVT that patient has. 4. Imaging was obtained. CT of the chest, abdomen, and pelvis was obtained that revealed, impression was unusual thrombotic event in the knee foreign body surgical history. 5. No evidence of thrombosis. There is evidence of prior pulmonary artery hypertension. 6. 4 x 3.9 x 3.8 cm right adrenal mass. Nonspecific, samples should be considered. Negative for acute pulmonary embolism. 7. Esophageal has other preoperative blood loss requiring two units of packed RBC transfusion. Currently, hemoglobin is over 9. 8. He will be discharged home with Lovenox 30 mg subcutaneously twice a day. 9. [facility] [place], which I have discussed with him. 10. He will start full anticoagulation within seven days. If we start full anticoagulation at this time, he is going to end up having intraarticular bleeding. The patient will be followed up by for the following, 11. Pulmonary nodule. 12. Adrenal mass. 13. DVT prophylaxis and he will be put back on his Coumadin regimen. 14. His pulmonary artery hypertension needs to be monitored very, very closely and the patient understands. 15. The patient will have home health for physical therapy. 16. Case was discussed with the patient as well as family members at length. 17. Discharge home with home health. 18. DVT prophylaxis with Lovenox. 19. Pain control will be started. 20. No Coumadin for one week and after that will be based on . Zachary Mercado M.D. DR: ARTIE JOB#: [id number] CC: Conner Carrasco M.D.
--- NOTE | 2016-07-17 12:21 | Diagnostic Imaging Report ---
APPROVED REPORT CPT Code: 87496 Present Symptoms Comments: Right knee swelling and pain Risk Factors Post OP RIGHT LEG: Venous imaging reveals a patent deep venous system. There is no evidence of thrombus within the femoral, popliteal or tibial segments. The greater saphenous vein is also within normal limits. Doppler indicates normal spontaneous flow within these segments. LEFT LEG: Venous imaging reveals acute thrombus in the popliteal to calf veins. Imaging also reveals chronic thrombus in the superficial femoral vein. Remainder of the deep venous system within normal limits. No evidence of thrombus in the common femoral vein. Greater saphenous vein is within normal limits. SAVANA Rosario was notified of abnormal results at 1450
--- NOTE | 2016-07-17 12:24 | Diagnostic Imaging Report ---
APPROVED REPORT CPT Code: 50209 Present Symptoms Comments: Evaluate IVC and iliac crest veins. Past History DVT : Pulmonary Embolism The distal IVC and IVC bifurcation was not seen due to overlying bowel gas. RIGHT LEG: Venous imaging reveals patent external iliac and common femoral veins. There is no evidence of thrombus within the femoral, popliteal or tibial segments. The greater saphenous vein is also within normal limits. Doppler indicates normal spontaneous flow within these segments. LEFT LEG: Venous imaging reveals patent external iliac and common femoral veins. Venous imaging reveals acute thrombus in the superficial femoral vein. Imaging also reveals chronic, recanalized thrombus in the superficial femoral vein. The popliteal vein was not visualized due to surgical bandages. There is no evidence of thrombus in the calf veins. The greater saphenous vein is within normal limits. SAVANA Nicholson and Charge Nurse Sonia were notified of abnormal results at 20:00 hrs.
--- NOTE | 2016-08-01 06:29 | Consultation ---
DATE OF CONSULTATION: 07/11/2016 REFERRING PHYSICIAN: Zachary Mercado M.D. REASON FOR EVALUATION: Deep venous thrombosis. HISTORY OF PRESENT ILLNESS: This is a 65-year-old male, who underwent left knee orthopedic procedure. The patient had a prior history of DVT and pulmonary embolism and he poorly had an IVC filter banding and filter placement Tulip by Interventional Radiology at [facility] in 2013. Vascular Surgery is consulted for further evaluation. The patient underwent lower extremity duplex, which showed left deep venous thrombosis. The patient denied any significant edema. Had some mild calf muscle pain. Denied any other complaints. PAST MEDICAL HISTORY: As above. History of deep venous thrombosis, pulmonary embolism, stroke, arrhythmia, prior history of DVT, inferior vena cava banding in the past and inferior vena cava filter Tulip placement by Interventional Radiology at [facility] in 2013. MEDICATIONS: See attached MAR. ALLERGIES: Penicillin and grass. SOCIAL HISTORY: He denies any history of smoking, drugs, or alcohol use. FAMILY HISTORY: Unremarkable. REVIEW OF SYSTEMS: Cardiovascular: No history of chest pain or palpitations. Pulmonary: No cough or hemoptysis. Gastrointestinal: No history of abdominal pain, constipation, or diarrhea. Genitourinary: No urinary symptoms. Neurological: No history of stroke or seizures. PHYSICAL EXAMINATION: VITAL SIGNS: The patient is afebrile at temperature of 97.5 degrees, heart rate 51, respirations 18, blood pressure 115/67, and oxygen saturation 98%. LUNGS: Clear to auscultation bilaterally. HEART: Regular rate and rhythm. ABDOMEN: Soft and nontender. EXTREMITIES: Palpable pedal pulses bilaterally. Feet are warm and well perfused. He has mild left leg hemostasis changes with no ulcerations. He has no significant leg edema. IMAGING STUDIES: Lower extremity duplex was reviewed with DVTs in the left leg. He had an abdominal KUB, which revealed an IVC filter in good position. IMPRESSION: 1. Extensive lower extremity deep venous thrombosis with prior history of DVT and prior history of IVC banding and filter placement Tulip by Interventional Radiology at [facility]. 2. Status post left knee orthopedic procedure. 3. History of DVT, pulmonary embolism, stroke, and arrhythmia. PLAN AND RECOMMENDATION: 1. CT angiogram with venous phase to evaluate the clot and IVC filter. 2. The patient should be anticoagulated for life with therapeutic levels. 3. Hematology evaluation rule out for clotting disorder. 4. The patient can ambulate. He should wear bilateral thigh-high stockings to reduce leg lymphedema. The patient is cleared from vascular surgery standpoint for discharge. The above is discussed at length with the patient and nurse at bedside. Jay Jay Marrero M.D. DR: KEISHA JOB#: [id number] CC: HELENA
== END 2016-07-14 13:51 | disposition home health service (06) | DRG 470 ==
LOC: SDSOVERFLO 05:59 → 3E 13:50
PROC: 0SRD0J9 Replacement of Left Knee Joint with Synthetic Substitute, Cemented, Open Approach (ICD-10-PCS; principal; 2016-07-10 09:30)
PROC: 30233N1 Transfusion of Nonautologous Red Blood Cells into Peripheral Vein, Percutaneous Approach (ICD-10-PCS; 2016-07-13)
DX: M17.12 Unilateral primary osteoarthritis, left knee (principal); I27.2 Other secondary pulmonary hypertension; I48.0 Paroxysmal atrial fibrillation; R00.1 Bradycardia, unspecified; I82.502 Chronic embolism and thrombosis of unspecified deep veins of left lower extremity; I10 Essential (primary) hypertension; Z86.711 Personal history of pulmonary embolism; N40.0 Benign prostatic hyperplasia without lower urinary tract symptoms; Z79.01 Long term (current) use of anticoagulants; R91.1 Solitary pulmonary nodule; Z88.0 Allergy status to penicillin; G47.33 Obstructive sleep apnea (adult) (pediatric); Z86.73 Personal history of transient ischemic attack (TIA), and cerebral infarction without residual deficits; Z98.84 Bariatric surgery status; I44.0 Atrioventricular block, first degree
CPT/HCPCS: 36415; 71275; 72191; 74000; 74175; 80053; 85007; 85025; 85610; 85730; 86850; 86900; 86901; 86920; 87081; 93970; 94003; 94150; J2250; J2405; J3490; S0077